=== PATIENT | female | born 1955 ===

== ENCOUNTER → 2020-12-29 | Outpatient (CLI) | payer MEDICARE ==
[~2020-12-29] VITALS: Ht 33 cm; Wt 0.5 kg
[~2020-12-29] MED LIST: IOHEXOL 350 MG/ML 100ML IJ ONE; LORazepam 0.5 MG TAB ONE; LORazepam 0.5 MG TAB PO ONE
[2020-12-29 12:15] VITALS: BP 199/88
[2020-12-29 13:19] LABS: Albumin 3.3 g/dL (3.4-5.0); BUN/Creatinine Ratio 13.9; Calcium 8.9 mg/dL (8.5-10.1)
[2020-12-29 13:23] LABS: Bilirubin, Total 0.5 mg/dL (0.2-1.0); Total Protein 7.6 g/dL (6.4-8.2)
[2020-12-29 14:23] VITALS: BP 178/84
== END | disposition home or self-care (01) ==
LOC: Rad HDHVI 11:35
PROVIDERS: ATTEND Internal Medicine Cardiovascular Disease
DX: I70.0 Atherosclerosis of aorta (principal); I70.201 Unspecified atherosclerosis of native arteries of extremities, right leg; I70.8 Atherosclerosis of other arteries; R94.4 Abnormal results of kidney function studies; I10 Essential (primary) hypertension
CPT/HCPCS: 36415; 75635; 80053; 80061; 93306; G0463; Q9967